=== PATIENT | male | born 1980 | race Two or more races ===

== ENCOUNTER 2025-05-02 07:10 | Emergency (ER) | payer OTHER ==
[~2025-05-02] VITALS: Ht 167.6 cm; Wt 71.0 kg
[2025-05-02 07:27] VITALS: TEMP 97.9
[2025-05-02] MEDS: ACETAMINOPHEN/CODEINE 300-30 MG TABLET PO ONE (08:09)
[2025-05-02] MEDS: IBUPROFEN 600 MG TABLET PO ONE (08:09)
[2025-05-02 09:07] VITALS: BP 123/76; PULSE 74; RESP 16; O2SAT 99
== END 2025-05-02 09:28 ==
LOC: EMS 07:10
DX: S83.91XA Sprain of unspecified site of right knee, initial encounter (principal); F17.210 Nicotine dependence, cigarettes, uncomplicated; Z65.3 Problems related to other legal circumstances; W01.0XXA Fall on same level from slipping, tripping and stumbling without subsequent striking against object, initial encounter; X50.1XXA Overexertion from prolonged static or awkward postures, initial encounter; Y93.89 Activity, other specified; Y92.89 Other specified places as the place of occurrence of the external cause; Y99.8 Other external cause status
CPT/HCPCS: 29505; 99283

== ENCOUNTER 2025-05-22 18:32 | Emergency (ER) | payer OTHER ==
[~2025-05-22] VITALS: Ht 170.2 cm; Wt 75.0 kg
[2025-05-22] MEDS: IBUPROFEN 400 MG TABLET PO ONE (20:17)
[2025-05-22] MEDS: ACETAMINOPHEN 500 MG TABLET PO ONE (20:17)
[2025-05-22 20:18] VITALS: BP 133/75; PULSE 68; RESP 16; TEMP 97.8; O2SAT 99
== END 2025-05-22 20:19 ==
LOC: EMS 18:32
DX: S83.91XA Sprain of unspecified site of right knee, initial encounter (principal); M25.561 Pain in right knee; M17.11 Unilateral primary osteoarthritis, right knee; F17.210 Nicotine dependence, cigarettes, uncomplicated; X58.XXXA Exposure to other specified factors, initial encounter; Y93.89 Activity, other specified; Y92.89 Other specified places as the place of occurrence of the external cause; Y99.8 Other external cause status
CPT/HCPCS: 29505; 29530; 99283